=== PATIENT | female | born 1955 ===

== ENCOUNTER → 2021-03-29 11:11 | Outpatient (REF) | payer BC, SELFPAY | LOC: ANHLAB 11:11 | PROVIDERS: Visit Provider Nurse Practitioner | DX: C44.311 Basal cell carcinoma of skin of nose (principal) | CPT/HCPCS: 88305; 88331 ==

== ENCOUNTER 2022-03-21 14:18 | Outpatient (NON) | payer BC, SELFPAY | END 2022-03-21 14:19 | disposition home or self-care (01) | LOC: ANHLAB 14:18 | PROVIDERS: Visit Provider Surgery Plastic and Reconstructive Surgery | DX: C44.311 Basal cell carcinoma of skin of nose (principal) | CPT/HCPCS: 88305; 88331 ==

== ENCOUNTER 2022-08-01 14:38 | Outpatient (NON) | payer BC, SELFPAY | END 2022-08-01 14:39 | disposition home or self-care (01) | LOC: ANHLAB 14:38 | PROVIDERS: Visit Provider Nurse Practitioner | DX: C44.91 Basal cell carcinoma of skin, unspecified (principal) | CPT/HCPCS: 88305; 88331 ==

== ENCOUNTER 2023-03-14 07:00 | Outpatient (NON) | payer BC, SELFPAY | END 2023-03-14 07:01 | disposition home or self-care (01) | PROVIDERS: Visit Provider Nurse Practitioner | DX: C44.319 Basal cell carcinoma of skin of other parts of face (principal) | CPT/HCPCS: 88305 ==

== ENCOUNTER 2023-04-10 14:16 | Outpatient (NON) | payer BC, SELFPAY | END 2023-04-10 14:17 | disposition home or self-care (01) | LOC: ANHLAB 14:16 | PROVIDERS: Visit Provider Nurse Practitioner | DX: C44.319 Basal cell carcinoma of skin of other parts of face (principal) | CPT/HCPCS: 88305; 88331 ==